=== PATIENT | female | born 1945 | race Hispanic/Latino ===

== ENCOUNTER → 2018-09-10 | Outpatient (CLI) | payer OTHER ==
[~2018-09-10] MED LIST: ALPR0.255 PO; ASPI-1181 PO; CLOB30CR5 TP; DULCOLAX PO; GLIM2TAB3 PO; METF-444 PO; PANT40TA25 PO; PSYL660P17 PO; SIMV20TA6 PO; VERA240T14 PO
== END | disposition home or self-care (01) ==
LOC: SHCH 13:26
PROVIDERS: ATTEND Internal Medicine Cardiovascular Disease
DX: I34.8 Other nonrheumatic mitral valve disorders (principal)
CPT/HCPCS: 93306

== ENCOUNTER → 2018-09-17 | Outpatient (CLI) | payer OTHER ==
[~2018-09-17] VITALS: Ht 162.6 cm; Wt 57.0 kg
[~2018-09-17] MED LIST changes: +REGADENOSON 0.4 MG/5 ML PF SYG IVP SCH
== END | disposition home or self-care (01) ==
LOC: SHCH 07:51
PROVIDERS: ATTEND Internal Medicine Cardiovascular Disease
DX: R06.00 Dyspnea, unspecified (principal); R00.2 Palpitations
CPT/HCPCS: 78452; 93017; 96374; A9500 ×2; J2785

== ENCOUNTER 2019-10-17 06:20 | Day surgery (SDC) | payer OTHER ==
[~2019-10-17] VITALS: Ht 161.3 cm; Wt 55.3 kg
[~2019-10-17 06:20] MED LIST changes: -ASPI-1181 PO; +ASPI-1443 PO; -CLOB30CR5 TP; -DULCOLAX PO; -GLIM2TAB3 PO; +GLIM2TAB30 PO; -PSYL660P17 PO; -REGADENOSON 0.4 MG/5 ML PF SYG IVP SCH; +SIMV-43 PO; -SIMV20TA6 PO; +SODIUM CHLORIDE 0.9% 1000ML 1,000 ML IV ONE; +[UNRECOGNIZED DRUG - OTHER] PO
[2019-10-17 07:30] VITALS: BP 139/65
[2019-10-17] MEDS ORDERED: VERA180T12 PO (07:50)
[2019-10-17] MEDS ORDERED: GLIM1TAB18 PO (07:50)
[2019-10-17] MEDS ORDERED: MIDAZOLAM HCL 1 MG/ML 2ML VIAL ONE (08:44)
[2019-10-17] MEDS ORDERED: PROPOFOL 10 MG/ML 20ML VIAL IV ONE (08:44)
[2019-10-17 08:59] VITALS: BP 83/63
[2019-10-17 09:04] VITALS: BP 93/45
[2019-10-17 09:08] VITALS: BP 105/59
[2019-10-17 09:14] VITALS: BP 108/54
[2019-10-17 09:19] VITALS: BP 112/60
== END 2019-10-17 09:25 | disposition home or self-care (01) ==
LOC: ENDO 06:20
PROVIDERS: ATTEND Internal Medicine
DX: R63.4 Abnormal weight loss (principal); K44.9 Diaphragmatic hernia without obstruction or gangrene; K22.8 Other specified diseases of esophagus; K31.89 Other diseases of stomach and duodenum; R12 Heartburn; R14.1 Gas pain; Z11.59 Encounter for screening for other viral diseases
CPT/HCPCS: 43239; 82948 ×2; 87635; 88305; 88342; A4215; A4221; A4222; A4223; A4606; A4620; A4663; J2250; J2704; J7030; 43200

== ENCOUNTER → 2019-11-18 | Outpatient (CLI) | payer OTHER ==
[~2019-11-18] MED LIST changes: +GLIM1TAB18 PO; -GLIM2TAB30 PO; -SODIUM CHLORIDE 0.9% 1000ML 1,000 ML IV ONE; +VERA180T12 PO; -VERA240T14 PO
[2019-11-18 09:49] LABS: ALBUMIN 3.7 g/dL (3.5-5.0); BILIRUBIN,TOTAL 0.6 mg/dL (0.2-1.0); CREATININE 0.9 mg/dL (0.5-1.5); POTASSIUM 4.5 mmol/L (3.5-5.1); TOTAL PROTEIN, SERUM 7.7 g/dL (6.0-8.3)
== END | disposition home or self-care (01) ==
LOC: RAH 08:13
PROVIDERS: ATTEND Internal Medicine
DX: K44.9 Diaphragmatic hernia without obstruction or gangrene (principal)
CPT/HCPCS: 36415; 76700; 80053

== ENCOUNTER → 2020-05-07 | Outpatient (CLI) | payer OTHER ==
[~2020-05-07] MED LIST changes: -PANT40TA25 PO; +PANT40TA54 PO
== END | disposition home or self-care (01) ==
LOC: RAH 09:08
PROVIDERS: ATTEND Internal Medicine Gastroenterology
DX: K21.9 Gastro-esophageal reflux disease without esophagitis (principal); K44.9 Diaphragmatic hernia without obstruction or gangrene
CPT/HCPCS: 74240

== ENCOUNTER → 2020-05-15 | Outpatient (CLI) | payer OTHER | END | disposition home or self-care (01) | LOC: LAB 05-07 10:27 | PROVIDERS: ATTEND Internal Medicine Gastroenterology | DX: R10.13 Epigastric pain (principal) | CPT/HCPCS: 36415; 87338 ==

== ENCOUNTER → 2020-09-18 | Outpatient (CLI) | payer OTHER | END | disposition home or self-care (01) | LOC: RAH 07:41 | PROVIDERS: ATTEND Internal Medicine Gastroenterology | DX: R10.13 Epigastric pain (principal) | CPT/HCPCS: 76700 ==

== ENCOUNTER → 2021-06-28 | Outpatient (CLI) | payer OTHER ==
[~2021-06-28] MED LIST changes: -VERA180T12 PO; +VERA180T61 PO
== END | disposition home or self-care (01) ==
LOC: RAH 07:39
PROVIDERS: ATTEND Family Medicine
DX: R10.2 Pelvic and perineal pain (principal)
CPT/HCPCS: 76700; 76856

== ENCOUNTER → 2024-06-07 | Outpatient (CLI) | payer OTHER ==
[~2024-06-07] MED LIST changes: +CLOB30CR5 TP; +FAMO20TA8 PO; -GLIM1TAB18 PO; +GLIM1TAB56 PO; -PANT40TA54 PO; +POLY30DR OP; +PROP325C17 PO; -VERA180T61 PO; -[UNRECOGNIZED DRUG - OTHER] PO
--- NOTE | 2024-06-07 13:35 | HMCIMG ---
CT calcium scoring Clinical Information: CT HEART SAVER SCREENING Comparison: None CT Dose Index (CTDI): 13.30 mGy Dose Length Product (DLP): 186.18 total mGy-cm Findings: Calcium score 664.8. Significant calcification. The CT scan is not a complete chest CT. Covered portion is reviewed for incidental findings. 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 IMPRESSION: Calcium score as above. Calcium score reference stable: 0: No identifiable calcification 1- 10: Minimal identifiable calcification 11-100: Mild calcification 101- 400: Moderate calcification 401 and above: Significant calcification Automated exposure control and adequate statistical iterative reconstructions were utilized as dose reduction techniques.
== END | disposition home or self-care (01) ==
LOC: RAH 12:54
PROVIDERS: ATTEND Internal Medicine Cardiovascular Disease
DX: Z13.6 Encounter for screening for cardiovascular disorders (principal)
CPT/HCPCS: 75571

== ENCOUNTER 2024-06-17 08:01 | Emergency (ER) | payer OTHER ==
[~2024-06-17] VITALS: Ht 162.6 cm; Wt 51.7 kg
--- NOTE | 2024-06-17 08:15 | ERN ---
General Chief Complaint: Dizzy/Light Headed Stated Complaint: NAUSEA, DIZZY Time Seen by MD: 08:04 Source: patient, family History of Present Illness Initial Comments Patient is a 78-year-old female coming in to be evaluated for vertigo. Per patient she has been having this on and off for several months was evaluated by her PCP and was scheduled to follow up with the ENT. Patient also states he has been has a urinary tract infection in his currently on antibiotics for that. Allergies: Coded Allergies: No Known Drug Allergies (Verified Allergy, Unknown, 08/19/15) levofloxacin (Unverified Allergy, Unknown, DIZZINESS, 07/12/16) Home Meds Reported Medications Clobetasol Propionate/Emoll (Clobetasol Emollient 0.05% Crm) 30 Gm Cream..g., 30 GM TP AD 01/09/23 Polyvinyl Alcohol/Povidone/Pf (Refresh Classic Eye Drops) 1 Each Droperette, 1 EACH OP DAILY, DROP 01/09/23 Propafenone HCl (Propafenone HCl) 325 Mg Cap.er.12h, 325 MG PO BID, CAPSULE.DR 01/09/23 Famotidine (Famotidine) 20 Mg Tablet, 20 MG PO AM, TAB 01/09/23 Glimepiride (Glimepiride) 1 Mg Tablet, 1 MG PO DAILY, TAB 10/17/19 Alprazolam (Alprazolam) 0.25 Mg Tablet, 0.25 MG PO TIDP PRN for ANXIETY, TAB 07/12/16 Aspirin (Aspirin EC) 81 Mg Tablet.dr, 81 MG PO AM, TAB 08/19/15 Metformin HCl (Metformin HCl) 500 Mg Tablet, 250 MG PO BIDAC, TAB 08/19/15 Simvastatin (Simvastatin) 20 Mg Tablet, 20 MG PO HS, TAB 08/19/15 Past Medical History Past Medical History: Diabetes-Type II, GERD, High Cholesterol, Heart Disease, Hypertension Past Surgical History: Appendectomy, Tonsillectomy Surgical History Other: LOOP RECORDER, KNEE ROS Dictation CONSTITUTIONAL: No chills, no fever, no weakness, no diaphoresis, no malaise. HEAD/FACE: No signs of trauma. EENT: No eye pain, no blurred vision, no tearing, no double vision, no ear pain, no ear discharge, no nose pain, no nasal congestion, no throat pain, no throat swelling, no mouth pain. RESPIRATORY: No cough, no orthopnea, no SOB, no stridor, no wheezing. CARDIOVASCULAR: No chest pain, no edema, no palpitations, no syncope. GASTROINTESTINAL/ABDOMINAL: No abdominal pain, no constipation, no diarrhea, no nausea, no vomiting. GENITOURINARY: No abnormal discharge, no dysuria, no frequent urination, no hem aturia. No complaints of pain in the genitals. MUSCULOSKELETAL: No back pain, no gout, no joint pain, no joint swelling, no mu scle pain, no muscle stiffness, no neck pain. INTEGUMENTARY: No change in color, no change in hair/nails, no dryness, no lesion, no lumps, no rash. NEUROLOGICAL/PSYCH: No anxiety, not depressed, no emotional problem, no headache, no numbness, no pre-existing deficit, no history of seizures, no tremors, no weakness. HEMATOLOGIC/LYMPHATIC: Not anemic, no history of blood clots, no apparent bleeding, no bruising, glands not swollen. All Systems Negative, Except as Noted. Physical Exam Physical Exam Dictation VITAL SIGNS: Reviewed. GENERAL APPEARANCE: Alert, oriented x3, no acute distress, obese. HEAD AND FACE: Non-traumatic. EYES: PERRL, pink conjunctivas, eyelid no trauma, anterior chamber clear. EARS: Pinnas intact and no signs of trauma or erythema. Ear canals clear and no discharge. TMs no erythema. NOSE: No discharge, no bleeding. OROPHARYNX: Mouth normal, teeth no caries, tongue pink. Pharynx clear, no erythema. Tonsils no exudates, no abscesses noted. Mucous membrane moist. NECK: Supple, non-tender, no thyromegaly, no masses, no JVD, no bruits. BREAST: Deferred. CHEST: No tenderness, no crepitus, no paradoxical movement, no retractions. LUNGS: Clear, well-ventilated, symmetric, no rales, no wheezing, no rhonchi, no stridor, good breath sounds bilaterally. HEART: Regular rate, regular rhythm, no murmur, no gallops. VASCULAR: No peripheral edema. ABDOMEN: Soft, positive bowel sounds, nondistended, no guarding, nontender, no rebound, no masses no hepatomegaly, no splenomegaly, no Land's sign, no hernias. RECTAL: Deferred. GENITAL: Deferred. NEUROLOGICAL: Normal speech, gross motor function intact, gross sensory function intact. MUSCULOSKELETAL: Neck nontender, full range of motion, back nontender, full range of motion. EXTREMITIES: Nontender, full range of motion. SKIN: Color pink, dry, no turgor, no rash, no lacerations, no abrasions, no contusions. LYMPHATICS: Deferred. Results Laboratory and Microbiology Lab and Micro Result Laboratory Tests Test 06/17/24 09:00 06/17/24 09:59 White Blood Count 6.6 K/uL (4.8-10.8) Red Blood Count 4.05 MIL/uL (4.00-5.50) Hemoglobin 13.2 g/dL (12.0-16.0) Hematocrit 38.6 % (36-48) Mean Corpuscular Volume 95.3 fL (79-99) Mean Corpuscular Hemoglobin 32.6 pg (27.0-33.0) Mean Corpuscular Hemoglobin Concent 34.2 g/dL (32.0-36.0) Red Cell Distribution Width 12.3 % (11.0-15.5) Platelet Count 170 K/uL (130-400) Mean Platelet Volume 9.5 fL (7.5-10.5) Immature Granulocyte % (Auto) 0.2 % (0-1) Neutrophils (%) (Auto) 81.0 % (40.0-77.0) H Lymphocytes (%) (Auto) 12.2 % (21.0-51.0) L Monocytes (%) (Auto) 5.8 % (3.0-13.0) Eosinophils (%) (Auto) 0.5 % (0.0-8.0) Basophils (%) (Auto) 0.3 % (0.0-5.0) Neutrophils # (Auto) 5.3 K/uL (1.8-7.7) Lymphocytes # (Auto) 0.8 K/uL (1.0-4.8) L Monocytes # (Auto) 0.4 K/uL (0.1-1.0) Eosinophils # (Auto) 0.03 K/uL (0.00-0.70) Basophils # (Auto) 0.02 K/uL (0.00-0.20) Absolute Immature Granulocyte (auto 0.01 K/uL (0-1) Nucleated Red Blood Cells 0.0 % (0.0-0.19) Sodium Level 137 mmol/L (136-145) Potassium Level 4.5 mmol/L (3.5-5.1) Chloride Level 101 mmol/L (101-111) Carbon Dioxide Level 33 mmol/L (21-32) H Blood Urea Nitrogen 10 mg/dL (7-18) Creatinine 0.9 mg/dL (0.5-1.0) Glomerular Filtration Rate Calc 66 mL/min (>90) Random Glucose 168 mg/dL (70-105) H Total Calcium 8.8 mg/dL (8.5-10.1) Magnesium Level 2.00 mg/dL (1.80-2.40) Total Creatine Kinase 72 U/L (21-232) Troponin I High Sensitivity 5 ng/L (4-50) Urine Color COLORLESS (YELLOW) Urine Appearance CLEAR (CLEAR) Urine pH 6.0 (5.0-8.0) Urine Specific Warren 1.007 (1.001-1.031) Urine Protein NEGATIVE mg/dL (NEGATIVE) Urine Glucose (UA) NEGATIVE mg/dL (NEGATIVE) Urine Ketones NEGATIVE mg/dL (NEGATIVE) Urine Occult Blood NEGATIVE (NEGATIVE) Urine Nitrate NEGATIVE (NEGATIVE) Urine Bilirubin NEGATIVE mg/dL (NEGATIVE) Urine Urobilinogen 0.2 mg/dL (0.2-1.0) Urine Leukocyte Esterase NEGATIVE Duane/uL Labs Reviewed?: Yes EKG/XRAY/US/CT/MRI EKG Comment 06/17/2024 time 8:11 a.m. Ventricular rate 64 Sinus rhythm [place] [address] wave elevation or depression MDM MDM: DIFFERENTIAL DIAGNOSIS: DEHYDRATION, ML CONGESTION, WE WILL TAKE HIM TUBE DYSFUNCTION, VERTIGO PATIENT IS A 78-YEAR-OLD FEMALE COMING IN TO BE EVALUATED FOR DIZZINESS. PER PATIENT THIS DIZZINESS HAS BEEN ONGOING FOR SOME TIME. PATIENT HAS BEEN EVALUATED BY PCP IN HIS PENDING A ENT VISIT. PATIENT WAS ALSO DIAGNOSED WITH A URINARY TRACT INFECTION IN HIS CURRENTLY ON ANTIBIOTICS. ON PHYSICAL EXAM BILATERAL TYMPANIC MEMBRANE ERYTHEMA MILD CLOUDINESS. PATIENT FELT BETTER WITH IV HYDRATION AND ANTIVERT. PATIENT WILL BE DISCHARGED IN STABLE CONDITION WITH A DIAGNOSIS OF MIDDLE EAR CONGESTION WITH VERTIGO ED Course Orders Procedure Category Date Status Time Cbc With Differential LAB 06/17/24 Complete 08:06 Chest 1vw RAD 06/17/24 Resulted 08:06 12 Lead Ekg Tracing- EKG 06/17/24 Complete Technical 08:06 0.9%Nacl 1000ml (Ns PHA 06/17/24 Complete 1000ml) 08:30 Magnesium LAB 06/17/24 Complete 08:06 Creatine Kinase, Total LAB 06/17/24 Complete 08:06 Troponin I High LAB 06/17/24 Complete Sensitivity 08:06 Urinalysis Profile LAB 06/17/24 Complete 08:06 Basic Metabolic Panel LAB 06/17/24 Complete 08:06 Meclizine Hcl 25 Mg PHA 06/17/24 Complete (Antivert 25 Mg) 08:30 Ct Head/Brain W/O CT 06/17/24 Logged Contrast 10:38 Current Medications Medications (Trade) Dose Ordered Sig/Konstantin Route PRN Reason Start Time Stop Time Status Last Admin Dose Admin Meclizine HCl (ANTIvert 25 mg) 25 mg ONCE ONCE PO 06/17/24 08:30 06/17/24 08:31 DC 06/17/24 08:54 Sodium Chloride 1,000 ml @ 0 mls/hr ONCE ONCE IV 06/17/24 08:30 06/17/24 08:31 DC 06/17/24 08:54 Vital Signs Date Time Temp Pulse Resp B/P (MAP) Pulse Ox O2 Delivery O2 Flow Rate FiO2 06/17/24 08:02 97.9 71 16 107/42 96 Room Air 0 DX & DISP Disposition: Discharge Departure Impression: Primary Impression: Eustachian tube dysfunction Additional Impression: Dehydration Condition: Stable Additional Instructions: FOLLOW-UP WITH PRIMARY CARE PROVIDER IN 1 TO 2 DAYS. TAKE MEDICATIONS DIRECTED HERE IN THE EMERGENCY ROOM. OKAY TO CONTINUE HOME MEDICATIONS UNLESS OTHERWISE DISCUSSED DURING YOUR VISIT IN THE EMERGENCY ROOM TODAY. RETURN TO YOUR NEAREST EMERGENCY ROOM IF SYMPTOMS WORSEN OR IF THERE IS NO IMPROVEMENT. CALL 911 IF YOU NEED IMMEDIATE ASSISTANCE. TAKE TYLENOL [id number] NEEDED AND IF NO CONTRAINDICATIONS ARE PRESENT. INCREASE ORAL HYDRATION. A WOUND CULTURE OR URINE CULTURE WAS ORDERED HERE IN THE EMERGENCY ROOM DEPARTMENT PLEASE FOLLOW-UP WITH PRIMARY CARE PROVIDER AND ADVISE THEM TO GET REPEAT PORTS FROM OUR FACILITY. IF YOU HAD ANY TARAN WRAP/SPLINTS THAT WERE APPLIED HERE, PLEASE DO NOT REMOVE THEM UNTIL YOU SEE YOUR PRIMARY CARE OR SPECIALTY. REFERRALS: Referrals: EH CAMARILLO DO (PCP) Time of Disposition: 11:13 MARCIE GUNDERSON MD Jun 17, 2024 08:15
--- NOTE | 2024-06-17 08:20 | EKG ---
[facility] Test Date: 2024-06-17 Test Time: 08:11:48 Pat Name: BEN HSU Department: [facility] Room: Gender: F Inspector Golf Ball: [id number] : [id number] Requested By: MARCIE GUNDERSON Order Number: [id number] Reading MD: John Benitez Measurements Intervals Paradox Rate: 64 P: 65 TX: 215 QRS: 73 QRSD: 118 T: -10 QT: 429 QTc: 443 Interpretive Statements Sinus rhythm Borderline prolonged TX interval Nonspecific intraventricular conduction delay Compared to ECG 06/27/2018 10:30:04 Intraventricular conduction delay now present Short TX interval no longer present Electronically Signed On 06-18-2024 06:56:09 FURNACE SETTER by John Benitez Please click the below link to view image of tracing.
[2024-06-17] MEDS: 0.9%NACL 1000ML 1,000 ML IV ONE (08:54)
[2024-06-17] MEDS: mecliZINE HCL 25 MG TABLET PO ONE (08:54)
[2024-06-17 09:14] LABS: BASOPHILS # (AUTO) 0.02 K/uL (0.00-0.20); BASOPHILS % (AUTO) 0.3 % (0.0-5.0); EOSINOPHILS # (AUTO) 0.03 K/uL (0.00-0.70); EOSINOPHILS % (AUTO) 0.5 % (0.0-8.0); HEMATOCRIT 38.6 % (36-48); IMMATURE GRANULOCYTE ABSOLUTE 0.01 K/uL (0-1); LYMPHOCYTES # (AUTO) 0.8 K/uL (1.0-4.8); LYMPHOCYTES % (AUTO) 12.2 % (21.0-51.0); MEAN CORPUSCULAR HEMOGLOBIN 32.6 pg (27.0-33.0); MEAN CORPUSCULAR HGB CONC 34.2 g/dL (32.0-36.0); MEAN CORPUSCULAR VOLUME 95.3 fL (79-99); MONOCYTES # (AUTO) 0.4 K/uL (0.1-1.0); MONOCYTES % (AUTO) 5.8 % (3.0-13.0); NEUTROPHILS # (AUTO) 5.3 K/uL (1.8-7.7); PLATELET COUNT (AUTO) 170 K/uL (130-400); RED BLOOD CELL COUNT(AUTO) 4.05 MIL/uL (4.00-5.50); RED CELL DISTRIBUTION WIDTH 12.3 % (11.0-15.5); WHITE BLOOD COUNT (AUTO) 6.6 K/uL (4.8-10.8)
--- NOTE | 2024-06-17 09:24 | HMCIMG ---
CHEST 1VW REASON: vertigo COMPARISON: 06/17/2024 FINDINGS: Single view of the chest was obtained. Lungs are clear. Heart size is normal. There is no pulmonary vascular congestion. Mediastinum and bony thorax appear unremarkable. IMPRESSION: 1. Normal single view chest x-ray.
[2024-06-17 09:29] LABS: CREATININE 0.9 mg/dL (0.5-1.0); POTASSIUM 4.5 mmol/L (3.5-5.1)
[2024-06-17 10:51] LABS: APPEARANCE,URINE CLEAR (CLEAR); BILIRUBIN,URINE NEGATIVE (NEGATIVE); COLOR,URINE COLORLESS (YELLOW); GLUCOSE, URINE (UA) NEGATIVE (NEGATIVE); KETONES,URINE NEGATIVE (NEGATIVE); LEUKOCYTE ESTERASE ,URINE NEGATIVE Leu/uL (NEGATIVE); NITRATE,URINE NEGATIVE (NEGATIVE); OCCULT BLOOD,URINE NEGATIVE (NEGATIVE); PROTEIN,URINE NEGATIVE (NEGATIVE); UROBILINOGEN,URINE 0.2 mg/dL (0.2-1.0)
[2024-06-17 10:54] LABS: ADD UA MICROSCOPIC NO
[2024-06-17] MEDS ORDERED: MECL-262 PO (11:15)
[2024-06-17 11:34] VITALS: BP 122/89; PULSE 71; RESP 16; TEMP 97.9; O2SAT 98
--- NOTE | 2024-06-17 11:42 | HMCIMG ---
Exam: NONCONTRAST CT BRAIN REASON: VERTIGO. COMPARISON: None. TECHNIQUE: Images are obtained from vertex to the skull base. The exam was performed without IV contrast. FINDINGS: There is normal appearing brain parenchyma. There are no focal mass lesions. There is is no evidence of intracranial hemorrhage or acute stroke. Ventricles and sulci appear normal. Posterior fossa and brainstem structures are unremarkable. Paranasal sinuses and remaining extracranial soft tissues appear normal as well. IMPRESSION: 1. Normal noncontrast CT brain. CT was performed with one or more following dose reduction techniques: automated exposure control, adjustment of the mA and kv according to patient's size, or use of a iterative reconstruction technique.
== END 2024-06-17 12:10 | disposition home or self-care (01) ==
LOC: EDH 08:01
DX: H69.90 Unspecified Eustachian tube disorder, unspecified ear (principal); E86.0 Dehydration; E11.9 Type 2 diabetes mellitus without complications; E78.00 Pure hypercholesterolemia, unspecified; I10 Essential (primary) hypertension; K21.9 Gastro-esophageal reflux disease without esophagitis; Z88.1 Allergy status to other antibiotic agents; Z90.49 Acquired absence of other specified parts of digestive tract; Z90.89 Acquired absence of other organs
CPT/HCPCS: 99285; 96360; 70450; 71045; 82550; 83735; 84484; 80048; 85025; 81003; 36415; 93005; J7030

== ENCOUNTER → 2024-07-19 | Outpatient (CLI) | payer OTHER ==
[~2024-07-19] MED LIST changes: +MECL-262 PO
[2024-07-19] MEDS: REGADENOSON 0.4 MG/5 ML PF SYG IVP ONE (13:57)
== END | disposition home or self-care (01) ==
LOC: SHCH 08:03
PROVIDERS: ATTEND Internal Medicine Cardiovascular Disease
DX: I25.10 Atherosclerotic heart disease of native coronary artery without angina pectoris (principal); R06.00 Dyspnea, unspecified
CPT/HCPCS: 78452; 93017; J2785; A9500 ×2